=== PATIENT | male | born 1995 | race African-American/Black ===

== ENCOUNTER 2020-01-14 15:59 | Emergency (ER) | payer SELFPAY ==
[~2020-01-14] VITALS: Ht 180.3 cm; Wt 91.9 kg
[2020-01-14 16:14] VITALS: BP 133/80
--- NOTE | 2020-01-14 16:43 | NUR ---
SIGNED OUT LWBS THROUGH REGISTRATION
== END 2020-01-14 17:27 ==
LOC: ED 16:34
DX: M67.432 Ganglion, left wrist (principal)
CPT/HCPCS: 99281

== ENCOUNTER 2020-01-15 13:49 | Emergency (ER) | payer SELFPAY ==
[~2020-01-15] VITALS: Ht 180.3 cm; Wt 92.8 kg
--- NOTE | 2020-01-15 14:24 | NUR ---
PT AMBULATORY FROM LOBBY TO ROOM 33.
[2020-01-15 14:36] VITALS: BP 128/71
[2020-01-15 14:44] LABS: ALANINE AMINOTRANSFERASE 24 U/L (12-78); ALBUMIN 4.5 g/dL (3.4-5.0); ANION GAP 5 mmol/L (5-15); CHLORIDE 107 mmol/L (98-107); CREATININE 1.15 mg/dL (0.7-1.3)
[2020-01-15 14:46] LABS: ALKALINE PHOSPHATASE 89 U/L (45-117); BASOPHILS % (AUTO) 0 % (0-1); BILIRUBIN,TOTAL 1.5 mg/dL (0.2-1.0); EOSINOPHILS % (AUTO) 0 % (1-7); LYMPHOCYTES % (AUTO) 31 % (22-44); MEAN CORPUSCULAR HEMOGLOBIN 28.5 pg (27.5-34.5); MEAN CORPUSCULAR HGB CONC 33.5 g/dL (33.2-36.2); MEAN PLATELET VOLUME 8.1 fL (7.4-10.4); MONOCYTES % (AUTO) 11 % (2-9); NEUTROPHILS % (AUTO) 58 % (42-75); PLATELET COUNT 236 x10^3/uL (130-400); RED CELL DISTRIBUTION WIDTH 14.5 % (9.4-14.8); TOTAL PROTEIN 8.3 g/dL (6.4-8.2)
[2020-01-15 14:50] LABS: MD NO
--- NOTE | 2020-01-15 15:19 | NUR ---
ALL RESULTS BACK, PT FOR RECHECK.
== END 2020-01-15 16:18 | disposition home or self-care (01) ==
LOC: ED 15:06
DX: B34.9 Viral infection, unspecified (principal); R06.02 Shortness of breath; R53.1 Weakness; R19.7 Diarrhea, unspecified; R05 Cough; F17.210 Nicotine dependence, cigarettes, uncomplicated
CPT/HCPCS: 36415; 71045; 80053; 83690; 85025; 87635; 93005; 99285; 99406

== ENCOUNTER 2020-03-24 16:01 | Emergency (ER) | payer OTHER ==
[~2020-03-24] VITALS: Ht 180.3 cm; Wt 97.1 kg
[2020-03-24 16:13] VITALS: BP 120/66
[2020-03-24] MEDS ORDERED: DEXAMETHASONE 4 MG/ML, 1ML ONE (16:39)
[2020-03-24] MEDS ORDERED: ONDANSETRON 2MG/ML, 2ML ONE (16:39)
[2020-03-24] MEDS ORDERED: ONDANSETRON ODT 4 MG ONE (16:40)
[2020-03-24] MEDS ORDERED: DEXAMETHASONE 4 MG/ML, 1ML PO ONE (17:00)
[2020-03-24] MEDS ORDERED: ONDANSETRON ODT 4 MG PO ONE (17:00)
== END 2020-03-24 17:49 | disposition home or self-care (01) ==
LOC: ED 16:22
DX: J02.8 Acute pharyngitis due to other specified organisms (principal); B97.89 Other viral agents as the cause of diseases classified elsewhere; R13.10 Dysphagia, unspecified
CPT/HCPCS: 71046; 87081; 87880; 99284; J1100; Q0162; 87147

== ENCOUNTER 2020-06-03 16:11 | Emergency (ER) | payer SELFPAY ==
[~2020-06-03] VITALS: Ht 180.3 cm; Wt 97.1 kg
--- NOTE | 2020-06-03 16:52 | NUR ---
ANI AT BEDSIDE FOR EVALUATION.
[2020-06-03] MEDS ORDERED: DEXAMETHASONE 4 MG TABLET ONE (17:05)
[2020-06-03] MEDS ORDERED: HYDROcodone/APAP 7.5-325MG/15ML UDC ONE (17:05)
--- NOTE | 2020-06-03 17:14 | NUR ---
THROAT SWELLING X 1.5 WEEKS. DIAGNOSED WITH STREP THROAT HERE ONE MONTH AGO. NASAL CONGESTION X 1 MONTH. CHILLS AND MUSCLE ACHES X 2 DAYS. PT RESTING IN BED, MEDICATED PER MELO RAY, GIOVANNI.
[2020-06-03 17:17] LABS: BASOPHILS % (AUTO) 0 % (0-1); EOSINOPHILS % (AUTO) 2 % (1-7); LYMPHOCYTES % (AUTO) 32 % (22-44); MEAN CORPUSCULAR HEMOGLOBIN 28.9 pg (27.5-34.5); MEAN CORPUSCULAR HGB CONC 33.4 g/dL (33.2-36.2); MEAN PLATELET VOLUME 7.3 fL (7.4-10.4); MONOCYTES % (AUTO) 8 % (2-9); NEUTROPHILS % (AUTO) 58 % (42-75); PLATELET COUNT 294 x10^3/uL (130-400); RED BLOOD COUNT 5.38 x10^6/uL (4.38-5.82); RED CELL DISTRIBUTION WIDTH 14.7 % (9.4-14.8)
[2020-06-03 17:20] LABS: MD NO
[2020-06-03] MEDS ORDERED: HYDROcodone/APAP 7.5-325MG/15ML UDC PO ONE (17:30)
[2020-06-03] MEDS ORDERED: DEXAMETHASONE 4 MG TABLET PO ONE (17:30)
[2020-06-03 18:28] VITALS: BP 100/59
== END 2020-06-03 18:31 | disposition home or self-care (01) ==
LOC: ED 16:49
DX: J06.9 Acute upper respiratory infection, unspecified (principal); Z20.822 Contact with and (suspected) exposure to COVID-19; R05 Cough; R09.81 Nasal congestion
CPT/HCPCS: 36415; 71045; 85025; 86308; 87081; 87880; 99284; U0003; 87147